=== PATIENT | female | born 1960 | race Caucasian/White ===

== ENCOUNTER 2018-01-15 06:15 | Inpatient (IN) | payer BC ==
[2018-01-13 14:41] LABS: BASOPHILS # (AUTO) 0.03 x10^3/uL (0-0.1); BASOPHILS % (AUTO) 0 % (0-1); EOSINOPHILS # (AUTO) 0.05 x10^3/uL (0-0.4); EOSINOPHILS % (AUTO) 1 % (1-7); LYMPHOCYTES # (AUTO) 1.84 x10^3/uL (1-3.4); LYMPHOCYTES % (AUTO) 32 % (22-44); MD NO; MEAN CORPUSCULAR HEMOGLOBIN 30.6 pg (27.0-34.8); MEAN CORPUSCULAR HGB CONC 33.6 g/dL (32.4-35.8); MEAN CORPUSCULAR VOLUME 90.9 fL (80-100); MEAN PLATELET VOLUME 7.4 fL (7.4-10.4); MONOCYTES # (AUTO) 0.42 x10^3/uL (0.2-0.8); MONOCYTES % (AUTO) 7 % (2-9); NEUTROPHILS # (AUTO) 3.49 x10^3/uL (1.8-6.8); NEUTROPHILS % (AUTO) 60 % (42-75); PLATELET COUNT 356 x10^3/uL (130-400); RED BLOOD COUNT 4.58 x10^6/uL (3.82-5.3); RED CELL DISTRIBUTION WIDTH 12.8 % (9.6-15.2)
[2018-01-13 14:43] LABS: ALBUMIN 4.1 g/dL (3.4-5.0); ANION GAP 7 mmol/L (5-15); CALCIUM 9.1 mg/dL (8.5-10.1); CHLORIDE 103 mmol/L (98-107)
[2018-01-13 14:46] LABS: ALANINE AMINOTRANSFERASE 21 U/L (12-78); ALKALINE PHOSPHATASE 58 U/L (45-117); BILIRUBIN,TOTAL 0.6 mg/dL (0.2-1.0); CREATININE 0.83 mg/dL (0.55-1.02); TOTAL PROTEIN 7.2 g/dL (6.4-8.2)
[~2018-01-15] VITALS: Ht 167.6 cm; Wt 68.4 kg
[~2018-01-15 06:15] MED LIST: ESTR0.5T PO; ROSU20TA PO; VENL75CA PO
[2018-01-15] MEDS ORDERED: LACTATED RINGERS 1,000 ML IV SCH (06:37)
[2018-01-15] MEDS ORDERED: FENTANYL PF 250 MCG/5ML ONE (06:49)
[2018-01-15] MEDS ORDERED: MIDAZOLAM 1 MG/ML, 2ML ONE (06:49)
[2018-01-15] MEDS ORDERED: PROPOFOL 10 MG/ML, 20ML ONE (06:51)
[2018-01-15] MEDS ORDERED: ROPIvacaine/PF 0.2%, 20 ML ONE ×2 (06:52)
[2018-01-15] MEDS ORDERED: ROCURONIUM 10MG/ML,5ML ONE (06:54)
[2018-01-15] MEDS ORDERED: NEOSTIGMINE 1 MG/ML, 10ML ONE (06:55)
[2018-01-15] MEDS ORDERED: DEXAMETHASONE 4 MG/ML, 1ML ONE ×2 (06:56)
[2018-01-15 06:57] VITALS: BP 108/76
[2018-01-15] MEDS ORDERED: INDOCYANINE GREEN 25 MG VIAL ONE (07:19)
[2018-01-15] MEDS ORDERED: BUPIVACAINE/PF 0.25% ONE (07:19)
[2018-01-15] MEDS ORDERED: EPINEPHRINE 1 MG/ML, 1ML ONE (07:19)
[2018-01-15] MEDS ORDERED: ONDANSETRON ODT 8 MG PO ONE (07:30)
[2018-01-15] MEDS ORDERED: PROMETHAZINE 25 MG/ML, 1ML IV PRN (07:30)
[2018-01-15] MEDS ORDERED: OxyconTIN ER 20 MG TAB.ER PO ONE (07:30)
[2018-01-15] MEDS ORDERED: MORPHINE SULFATE 4 MG/ML, 1ML IVPush PRN (07:30)
[2018-01-15] MEDS ORDERED: PROMETHAZINE 25 MG SUPP PR PRN (07:30)
[2018-01-15] MEDS ORDERED: PROMETHAZINE 12.5 MG SUPP PR PRN (07:30)
[2018-01-15] MEDS ORDERED: SCOPOLAMINE PATCH, 1.5MG PATCH.TD72 TD ONE (07:30)
[2018-01-15] MEDS ORDERED: GABAPENTIN 300 MG CAPSULE PO ONE (07:30)
[2018-01-15] MEDS ORDERED: HYDROmorphone 1 MG/ML, 1ML IV PRN (07:30)
[2018-01-15] MEDS ORDERED: hydrALAzine 20 MG/ML, 1ML IV PRN (07:30)
[2018-01-15] MEDS ORDERED: OXYcodone 5 MG/5 ML ORAL.SOL UDC PO PRN (07:30)
[2018-01-15] MEDS ORDERED: ACETAMINOPHEN 500 MG TABLET PO ONE (07:30)
[2018-01-15] MEDS ORDERED: LABETALOL 5MG/ML, 20ML IV PRN (07:30)
[2018-01-15] MEDS ORDERED: ONDANSETRON ODT 8 MG PO PRN (07:30)
[2018-01-15] MEDS ORDERED: MEPERIDINE/PF 25MG/0.5ML IVPush PRN (07:30)
[2018-01-15] MEDS ORDERED: GLYCOPYRROLATE 0.2MG/1ML, 5ML ONE (07:35)
[2018-01-15] MEDS ORDERED: PHENYLEPHRINE 10 MG/ML ONE (08:08)
[2018-01-15] MEDS ORDERED: BUPIVACAINE/PF-EPI 0.25% 1:200K IM ONE (08:35)
[2018-01-15] MEDS ORDERED: FENTANYL PF 100 MCG/2ML ONE (10:11)
[2018-01-15] MEDS: FENTANYL PF 100 MCG/2ML IV PRN ×3 (10:13→10:45)
[2018-01-15] MEDS ORDERED: SCOPOLAMINE PATCH, 1.5MG PATCH.TD72 TD PRN (12:00)
[2018-01-15] MEDS ORDERED: HYDROmorphone 1 MG/ML, 1ML IVPush PRN (12:00)
[2018-01-15] MEDS ORDERED: HALOPERIDOL 5 MG/ML IVPush PRN (12:00)
[2018-01-15] MEDS: OXYcodone IR 5MG TABLET PO PRN ×2 (12:00→16:10)
[2018-01-15] MEDS ORDERED: LORazepam 2 MG/ML, 1ML IVPush PRN (12:00)
[2018-01-15] MEDS ORDERED: LORazepam 1MG TABLET PO PRN (12:00)
[2018-01-15] MEDS ORDERED: DIPHENHYDRAMINE 50 MG/ML, 1ML IVPush PRN (12:00)
[2018-01-15] MEDS ORDERED: CALCIUM CARBONATE 500 MG TAB.CHEW PO PRN (12:00)
[2018-01-15] MEDS ORDERED: DEXAMETHASONE 4 MG/ML, 1ML IVPush PRN (12:00)
[2018-01-15] MEDS ORDERED: DIPHENHYDRAMINE 25 MG CAPSULE PO PRN (12:00)
[2018-01-15] MEDS: D5%-0.45NACL+KCL 20MEQ 1,000 ML IV SCH (12:05)
[2018-01-15 13:00] VITALS: BP 95/64
[2018-01-15] MEDS: ACETAMINOPHEN 500 MG TABLET PO SCH ×2 (13:56→22:42)
[2018-01-15] MEDS: ONDANSETRON 2MG/ML, 2ML IV PRN ×2 (15:35→22:42)
[2018-01-15] MEDS: IBUPROFEN 800 MG TABLET PO SCH ×2 (15:35→23:36)
[2018-01-15 19:13] VITALS: BP 105/57
[2018-01-15] MEDS ORDERED: HYDROmorphone 2 MG/ML, 1ML ONE (21:05)
[2018-01-15 23:43] VITALS: BP 104/59
[2018-01-16 03:41] VITALS: BP 107/63
[2018-01-16] MEDS: ONDANSETRON 2MG/ML, 2ML IV PRN (04:11)
[2018-01-16] MEDS: ACETAMINOPHEN 500 MG TABLET PO SCH ×4 (04:11→22:23)
[2018-01-16] MEDS: D5%-0.45NACL+KCL 20MEQ 1,000 ML IV SCH ×2 (04:14→14:31)
[2018-01-16 06:07] LABS: BASOPHILS % (AUTO) 0 % (0-1); EOSINOPHILS % (AUTO) 0 % (1-7); LYMPHOCYTES # (AUTO) 1.16 x10^3/uL (1-3.4); LYMPHOCYTES % (AUTO) 9 % (22-44); MD NO; MEAN CORPUSCULAR HEMOGLOBIN 30.6 pg (27.0-34.8); MEAN CORPUSCULAR HGB CONC 33.3 g/dL (32.4-35.8); MONOCYTES # (AUTO) 0.96 x10^3/uL (0.2-0.8); MONOCYTES % (AUTO) 8 % (2-9); NEUTROPHILS # (AUTO) 10.34 x10^3/uL (1.8-6.8); NEUTROPHILS % (AUTO) 83 % (42-75); PLATELET COUNT 320 x10^3/uL (130-400); RED BLOOD COUNT 4.22 x10^6/uL (3.82-5.3); RED CELL DISTRIBUTION WIDTH 12.9 % (9.6-15.2)
[2018-01-16 06:11] LABS: CHLORIDE 108 mmol/L (98-107)
[2018-01-16 06:21] LABS: ANION GAP 8 mmol/L (5-15); CREATININE 0.92 mg/dL (0.55-1.02)
[2018-01-16 07:06] VITALS: BP 92/59
[2018-01-16] MEDS: ESTRADIOL 0.5 MG TABLET PO SCH (08:58)
[2018-01-16] MEDS: VENLAFAXINE 75 MG CAP ER PO SCH (08:59)
[2018-01-16] MEDS: IBUPROFEN 800 MG TABLET PO SCH ×3 (08:59→23:38)
[2018-01-16] MEDS: ENOXAPARIN 40 MG/0.4 ML SQ SCH (08:59)
[2018-01-16 13:58] VITALS: BP 101/61
[2018-01-16 14:07] VITALS: BP 103/66
[2018-01-16 19:17] VITALS: BP 104/65
[2018-01-16] MEDS: OXYcodone IR 5MG TABLET PO PRN (19:57)
[2018-01-17 01:14] VITALS: BP 105/68
[2018-01-17] MEDS: D5%-0.45NACL+KCL 20MEQ 1,000 ML IV SCH (04:00)
[2018-01-17] MEDS: ACETAMINOPHEN 500 MG TABLET PO SCH ×2 (05:13→09:57)
[2018-01-17] MEDS: OXYcodone IR 5MG TABLET PO PRN (05:22)
[2018-01-17 05:59] LABS: CALCIUM 8.5 mg/dL (8.5-10.1); CHLORIDE 110 mmol/L (98-107)
[2018-01-17 06:01] LABS: BASOPHILS # (AUTO) 0.02 x10^3/uL (0-0.1); BASOPHILS % (AUTO) 0 % (0-1); EOSINOPHILS # (AUTO) 0.07 x10^3/uL (0-0.4); EOSINOPHILS % (AUTO) 1 % (1-7); LYMPHOCYTES % (AUTO) 22 % (22-44); MD NO; MEAN CORPUSCULAR HEMOGLOBIN 30.8 pg (27.0-34.8); MEAN CORPUSCULAR HGB CONC 33.1 g/dL (32.4-35.8); MEAN CORPUSCULAR VOLUME 93.3 fL (80-100); MEAN PLATELET VOLUME 7.8 fL (7.4-10.4); MONOCYTES # (AUTO) 0.48 x10^3/uL (0.2-0.8); MONOCYTES % (AUTO) 6 % (2-9); NEUTROPHILS # (AUTO) 5.32 x10^3/uL (1.8-6.8); NEUTROPHILS % (AUTO) 70 % (42-75); PLATELET COUNT 277 x10^3/uL (130-400); RED BLOOD COUNT 4.09 x10^6/uL (3.82-5.3); RED CELL DISTRIBUTION WIDTH 13.5 % (9.6-15.2)
[2018-01-17 06:03] LABS: ANION GAP 4 mmol/L (5-15); CREATININE 0.77 mg/dL (0.55-1.02)
[2018-01-17 06:40] VITALS: BP 114/73
[2018-01-17] MEDS: ESTRADIOL 0.5 MG TABLET PO SCH (08:45)
[2018-01-17] MEDS: ENOXAPARIN 40 MG/0.4 ML SQ SCH (08:45)
[2018-01-17] MEDS: IBUPROFEN 800 MG TABLET PO SCH (08:45)
[2018-01-17] MEDS: VENLAFAXINE 75 MG CAP ER PO SCH (08:45)
[2018-01-17 09:59] VITALS: BP 109/74
[2018-01-17] MEDS ORDERED: OXYC-302 PO (10:56)
== END 2018-01-17 11:05 | disposition home or self-care (01) | DRG 331 ==
LOC: ORIP 06:15 → EDSTATUS 09:30 → 4NOR 11:25 → DCLOUNGE 01-17 10:52
PROVIDERS: ADMIT Surgery; ATTEND Surgery
PROC: 0DBP4ZZ Excision of Rectum, Percutaneous Endoscopic Approach (ICD-10-PCS; 2018-01-15)
PROC: 8E0W4CZ Robotic Assisted Procedure of Trunk Region, Percutaneous Endoscopic Approach (ICD-10-PCS; 2018-01-15)
PROC: 0DTN4ZZ Resection of Sigmoid Colon, Percutaneous Endoscopic Approach (ICD-10-PCS; principal; 2018-01-15 07:30)
DX: K57.32 Diverticulitis of large intestine without perforation or abscess without bleeding (principal); E78.00 Pure hypercholesterolemia, unspecified; Z90.710 Acquired absence of both cervix and uterus; Z90.89 Acquired absence of other organs; Z91.040 Latex allergy status; Z86.73 Personal history of transient ischemic attack (TIA), and cerebral infarction without residual deficits; Z83.49 Family history of other endocrine, nutritional and metabolic diseases
CPT/HCPCS: 36415; 71046; 80048; 80053; 85025; 86850; 86900; 88307; 93005; J0171; J1100; J1170; J1650; J2250; J2405; J2704; J2710; J2795; J3010; J3490; Q0162; J1200; J2370; J3480; J7120

== ENCOUNTER 2018-08-18 18:15 | Observation (INO) | payer BC ==
[~2018-08-18] VITALS: Ht 167.6 cm; Wt 71.0 kg
[~2018-08-18 18:15] MED LIST changes: +OXYC-302 PO
[2018-08-18 18:39] VITALS: BP 135/84
[2018-08-18 18:48] LABS: BASOPHILS # (AUTO) 0.03 x10^3/uL (0-0.1); BASOPHILS % (AUTO) 1 % (0-1); EOSINOPHILS # (AUTO) 0.05 x10^3/uL (0-0.4); EOSINOPHILS % (AUTO) 1 % (1-7); LYMPHOCYTES # (AUTO) 1.72 x10^3/uL (1-3.4); LYMPHOCYTES % (AUTO) 28 % (22-44); MD NO; MEAN CORPUSCULAR HEMOGLOBIN 31.8 pg (27.0-34.8); MEAN CORPUSCULAR HGB CONC 34.3 g/dL (32.4-35.8); MEAN CORPUSCULAR VOLUME 92.6 fL (80-100); MONOCYTES # (AUTO) 0.39 x10^3/uL (0.2-0.8); MONOCYTES % (AUTO) 6 % (2-9); NEUTROPHILS # (AUTO) 3.94 x10^3/uL (1.8-6.8); NEUTROPHILS % (AUTO) 64 % (42-75); PLATELET COUNT 304 x10^3/uL (130-400); RED BLOOD COUNT 4.32 x10^6/uL (3.82-5.3); RED CELL DISTRIBUTION WIDTH 13.2 % (9.6-15.2)
[2018-08-18] MEDS ORDERED: LORazepam 1MG TABLET PO ONE (19:00)
[2018-08-18 19:06] LABS: ALANINE AMINOTRANSFERASE 33 U/L (12-78); ALBUMIN 4.2 g/dL (3.4-5.0); ANION GAP 4 mmol/L (5-15); CALCIUM 9.1 mg/dL (8.5-10.1); CHLORIDE 108 mmol/L (98-107); CREATININE 0.79 mg/dL (0.55-1.02)
[2018-08-18 19:08] LABS: ALKALINE PHOSPHATASE 51 U/L (45-117); BILIRUBIN,TOTAL 0.3 mg/dL (0.2-1.0); TOTAL PROTEIN 6.9 g/dL (6.4-8.2)
[2018-08-18 19:09] LABS: MICROSCOPIC AUTO
[2018-08-18 19:11] LABS: ACETAMINOPHEN < 2 mcg/mL (10-30); SALICYLATE LEVEL < 1.7 mg/dL (2.8-20.0)
[2018-08-18] MEDS ORDERED: LORazepam 1MG TABLET ONE (19:12)
--- NOTE | 2018-08-18 19:16 | NUR ---
ASSUMED CARE FOR THIS PT. PT IS IN A SECURE ROOM AND BELONGINGS IN SECURE LOCKER. PT HAS BEEN MEDICATED ORDERED AND IS AWAITING ADMIT MD AND ORDERS. PT IS ON A HOLD AND WILL BE MOVED TO WHENN ABLE. PT CALM AND COOPERATIVE AT THIS TIME. YENY AT BEDSIDE.
[2018-08-18 19:19] LABS: AMPHETAMINE SCREEN, URINE Negative (Negative); BARBITURATE SCREEN, URINE Negative (Negative); BENZODIAZEPINE SCREEN, URINE Negative (Negative); CANNABINOID SCREEN, URINE Negative (Negative); COCAINE SCREEN, URINE Negative (Negative); METHADONE SCREEN, URINE Negative (Negative); OPIATE SCREEN, URINE Negative (Negative)
--- NOTE | 2018-08-18 20:58 | NUR ---
ROSEMARY RN: PACKET FAXED TO [facility], [facility], [facility], AND [facility].
[2018-08-18] MEDS ORDERED: HALOPERIDOL 1 MG TABLET PO PRN (21:30)
[2018-08-18] MEDS ORDERED: HYDROXYZINE PAMOATE 25MG CAP PO PRN (21:30)
[2018-08-18] MEDS ORDERED: HALOPERIDOL 5 MG TABLET PO PRN (21:30)
[2018-08-18] MEDS ORDERED: MELATONIN 3 MG TABLET PO SCH (21:30)
[2018-08-18] MEDS ORDERED: ACETAMINOPHEN 325 MG TABLET PO PRN (21:30)
[2018-08-18] MEDS ORDERED: TRAZODONE 50MG TABLET PO PRN (21:30)
[2018-08-18] MEDS ORDERED: ONDANSETRON ODT 4 MG PO PRN (21:30)
--- NOTE | 2018-08-18 21:49 | NUR ---
accepting dr keane from [facility]. spoke with kenneth and rn will call back for report.
[2018-08-18] MEDS ORDERED: CEFTRIAXONE PMX 1GM/50ML 50 ML IV ONE (22:00)
--- NOTE | 2018-08-18 22:29 | NUR ---
PT TO BE TRANSPORTED TO [facility]IA [facility]
[2018-08-18 22:39] LABS: HCG UR SG 1.011 (1.003-1.030)
[2018-08-19] MEDS ORDERED: SENNA/DOCUSATE TABLET PO SCH (09:00)
[2018-08-19] MEDS ORDERED: SERTRALINE 50MG TABLET PO SCH (09:00)
[2018-08-19] MEDS ORDERED: VENLAFAXINE XR 37.5MG CAP.ER.24H PO SCH (09:00)
== END 2018-08-18 23:04 ==
LOC: ED 19:39 → EDIP 20:35
PROVIDERS: ADMIT Internal Medicine; ATTEND Internal Medicine
DX: F33.9 Major depressive disorder, recurrent, unspecified (principal); F41.1 Generalized anxiety disorder; E78.5 Hyperlipidemia, unspecified; F03.90 Unspecified dementia, unspecified severity, without behavioral disturbance, psychotic disturbance, mood disturbance, and anxiety; Z87.891 Personal history of nicotine dependence; Z90.710 Acquired absence of both cervix and uterus
CPT/HCPCS: 36415; 80053; 80307; 80329; 81001; 81025; 85025; 87086; 99284; G0378; G0480